=== PATIENT | male | born 1945 ===

== ENCOUNTER 2018-05-22 12:31 | Inpatient (IN) | payer MEDICARE, BC ==
[~2018-05-22] VITALS: Ht 180.3 cm; Wt 112.0 kg
[~2018-05-22 12:31] MED LIST: ALLERGY RELIE15.8 ML; AMOCLA875 PO; ASPI81CH PO; BISA5EC PO; DOXA4 PO; FURO40 PO; GLIM2 PO; HYDACE10B PO; INSULANI SC; INSULANPEN SC; KRILL OIL500 MG PO; LISHYD2025 PO; LISI5 PO; MAGCHL64ER PO; MAGNESIUM400 MG PO; MELO7.5 PO; METF500 PO; METO25 PO; METO25ER PO; METO50 PO; Metformin HCl500 MG PO; Novolog100 UNIT/1 SC; Omeprazole20 M1 PO; PERI4 PO; PIOG30 PO; PRAV20 PO; PRED20 PO; Prinivil10 MG PO; TERBINAFINE PO
[2018-05-28 05:27] LABS: BASOPHILS ABSOLUTE AUTO 0.01 K/mm3 (0.00-0.23); BASOPHILS PERCENT AUTO 0 % (0-2); EOSINOPHILS PERCENT AUTO 0 % (0-6); Hematocrit 36.4 % (37.0-53.0); Hemoglobin 12.1 g/dL (13.5-17.5); IMMATURE GRAN ABSOLUTE AUTO 0.03 K/mm3 (0.00-0.10); IMMATURE GRAN PERCENT AUTO 0 % (0-1); LYMPHOCYTES ABSOLUTE AUTO 1.03 K/mm3 (0.84-5.20); LYMPHOCYTES PERCENT AUTO 8 % (21-46); MONOCYTES ABSOLUTE AUTO 0.59 K/mm3 (0.16-1.47); MONOCYTES PERCENT AUTO 5 % (4-13); Mean Corpuscular HGB 31.7 pg (26.0-34.0); Mean Corpuscular HGB Conc 33.2 g/dL (31.5-36.5); Mean Corpuscular Volume 95 fL (80-100); Mean Platelet Volume 10.7 fL (9.1-12.4); NEUTROPHILS ABSOLUTE AUTO 10.95 K/mm3 (1.96-9.15); NEUTROPHILS PERCENT AUTO 87 % (41-73); Platelet Count 127 K/mm3 (150-400); RDW Standard Deviation 49.2 fL (35.1-46.3); Red Blood Cell Count 3.82 M/mm3 (4.30-5.90); White Blood Cell Count 12.61 K/mm3 (4.00-11.30)
[2018-05-28 05:51] LABS: Magnesium, Blood 1.8 mg/dL (1.6-2.4)
[2018-05-28 05:54] LABS: Anion Gap 7 mmol/L (6-16); Blood Urea Nitrogen 23 mg/dL (8-24); Bun/Creatinine Ratio 21.1 (12.0-20.0); CO2, Blood 25 mmol/L (21-32); Calcium, Blood 8.3 mg/dL (8.5-10.1); Chloride, Blood 108 mmol/L (98-108); Creatinine, Blood 1.09 mg/dL (0.60-1.20); Glomerular Filtration Rate >60 (60-); Glucose, Blood 179 mg/dL (70-99); Potassium, Blood 4.9 mmol/L (3.5-5.5); Sodium, Blood 140 mmol/L (136-145)
[2018-05-28] MEDS ORDERED: DOCU100 PO (14:52)
[2018-05-28] MEDS ORDERED: ASPI325 PO (14:52)
[2018-05-28] MEDS ORDERED: OXYC5 PO (14:54)
== END 2018-05-28 15:21 | disposition home or self-care (01) | DRG 470 ==
LOC: SURS 05-27 08:51 → PRE IP 05-27 11:30 → SURS 05-27 18:42
PROVIDERS: Orthopaedic Surgery
PROC: 8E0YXBZ Computer Assisted Procedure of Lower Extremity (ICD-10-PCS; 2018-05-27)
PROC: 0SR90JZ Replacement of Right Hip Joint with Synthetic Substitute, Open Approach (ICD-10-PCS; principal; 2018-05-27 11:30)
DX: M16.11 Unilateral primary osteoarthritis, right hip (principal); C91.10 Chronic lymphocytic leukemia of B-cell type not having achieved remission; E11.9 Type 2 diabetes mellitus without complications; E78.5 Hyperlipidemia, unspecified; N40.0 Benign prostatic hyperplasia without lower urinary tract symptoms; I10 Essential (primary) hypertension; Z79.82 Long term (current) use of aspirin; Z79.4 Long term (current) use of insulin; Z79.899 Other long term (current) drug therapy; Z87.891 Personal history of nicotine dependence
CPT/HCPCS: 36415; 72170; 80048; 82947; 83735; 85025; 86850; 86900; 86901; 88300; 97110; 97116; 97162; 97165; 97530; C1713; C1776; G8978; G8979; G8987; G8988; G8989; J0171; J0690; J0735; J1100; J1885; J2001; J2250; J2370; J2405; J2710; J2795; J3010; J7120

== ENCOUNTER 2018-05-29 08:15 | Emergency (ER) | payer MEDICARE, BC ==
[~2018-05-29] VITALS: Ht 177.8 cm; Wt 113.4 kg
[~2018-05-29 08:15] MED LIST changes: +ASPI325 PO; +DOCU100 PO; +OXYC5 PO
== END 2018-05-29 09:43 | disposition home or self-care (01) ==
LOC: ER 08:15
DX: M96.840 Postprocedural hematoma of a musculoskeletal structure following a musculoskeletal system procedure (principal); E11.9 Type 2 diabetes mellitus without complications; I10 Essential (primary) hypertension; Z87.891 Personal history of nicotine dependence; Z79.899 Other long term (current) drug therapy; Z79.4 Long term (current) use of insulin; Z79.82 Long term (current) use of aspirin; Z96.642 Presence of left artificial hip joint
CPT/HCPCS: 99282

== ENCOUNTER 2019-05-17 18:28 | Emergency (ER) | payer OTHER, MEDICARE, BC ==
[~2019-05-17] VITALS: Ht 177.8 cm; Wt 99.8 kg
[~2019-05-17 18:28] MED LIST changes: +Cardura8 MG PO; -DOXA4 PO; +Pravachol40 MG PO
[2019-05-17] MEDS ORDERED: Aspirin EC81 MG PO (18:40)
[2019-05-17] MEDS ORDERED: ENTRESTO 49 MG1 EACH PO (18:41)
[2019-05-17] MEDS ORDERED: POTCHL20ER PO (18:41)
[2019-05-17] MEDS ORDERED: SINEMET 25-1001 EACH PO (18:48)
[2019-05-17] MEDS ORDERED: Metformin HCl1000 MG PO (18:50)
[2019-05-17] MEDS ORDERED: Glucosamine Co1 EAC1 PO (18:51)
[2019-05-17 19:09] LABS: BASOPHILS ABSOLUTE AUTO 0.03 K/mm3 (0.00-0.23); BASOPHILS PERCENT AUTO 0 % (0-2); EOSINOPHILS ABSOLUTE AUTO 0.14 K/mm3 (0.00-0.68); EOSINOPHILS PERCENT AUTO 1 % (0-6); Hematocrit 36.4 % (37.0-53.0); Hemoglobin 12.4 g/dL (13.5-17.5); IMMATURE GRAN ABSOLUTE AUTO 0.04 K/mm3 (0.00-0.10); IMMATURE GRAN PERCENT AUTO 0 % (0-1); LYMPHOCYTES ABSOLUTE AUTO 1.89 K/mm3 (0.84-5.20); LYMPHOCYTES PERCENT AUTO 19 % (21-46); MONOCYTES ABSOLUTE AUTO 0.76 K/mm3 (0.16-1.47); MONOCYTES PERCENT AUTO 8 % (4-13); Mean Corpuscular HGB 33.4 pg (26.0-34.0); Mean Corpuscular HGB Conc 34.1 g/dL (31.5-36.5); Mean Corpuscular Volume 98 fL (80-100); Mean Platelet Volume 10.5 fL (9.1-12.4); NEUTROPHILS ABSOLUTE AUTO 7.32 K/mm3 (1.96-9.15); NEUTROPHILS PERCENT AUTO 72 % (41-73); Platelet Count 141 K/mm3 (150-400); RDW Coefficient Variation 13.4 % (11.7-14.2); RDW Standard Deviation 48.3 fL (35.1-46.3); Red Blood Cell Count 3.71 M/mm3 (4.30-5.90); White Blood Cell Count 10.18 K/mm3 (4.00-11.30)
[2019-05-17 19:24] LABS: Albumin, Blood 4.2 g/dL (3.4-5.0); Albumin/Globulin Ratio 1.5 (0.8-1.8); Bilirubin, Total 1.1 mg/dL (0.1-1.0); Bun/Creatinine Ratio 20.5 (12.0-20.0); Calcium, Blood 9.7 mg/dL (8.5-10.1); Creatinine, Blood 1.71 mg/dL (0.60-1.20); Globulin, Blood 2.8 g/dL (2.2-4.0); Magnesium, Blood 1.6 mg/dL (1.6-2.4); Potassium, Blood 4.1 mmol/L (3.5-5.5)
== END 2019-05-17 21:53 | disposition home or self-care (01) ==
LOC: ER 18:28
PROVIDERS: Emergency Medicine
DX: N17.9 Acute kidney failure, unspecified (principal); N28.9 Disorder of kidney and ureter, unspecified; R00.0 Tachycardia, unspecified; E11.9 Type 2 diabetes mellitus without complications; I10 Essential (primary) hypertension; Z85.51 Personal history of malignant neoplasm of bladder; Z79.899 Other long term (current) drug therapy; Z79.4 Long term (current) use of insulin; Z79.82 Long term (current) use of aspirin
CPT/HCPCS: 71046; 80053; 83735; 85025; 93005; 93010; 96374; 99285-25

== ENCOUNTER → 2019-06-17 | Outpatient (CLI) | payer MEDICARE, BC ==
[~2019-06-17] MED LIST changes: +Aspirin EC81 MG PO; +ENTRESTO 49 MG1 EACH PO; +Glucosamine Co1 EAC1 PO; +Metformin HCl1000 MG PO; +POTCHL20ER PO; +SINEMET 25-1001 EACH PO
== END | disposition home or self-care (01) ==
LOC: PLD 12:18 → LAB SHORT 12:18
DX: C44.619 Basal cell carcinoma of skin of left upper limb, including shoulder (principal); C44.311 Basal cell carcinoma of skin of nose; D04.22 Carcinoma in situ of skin of left ear and external auricular canal; D18.01 Hemangioma of skin and subcutaneous tissue; L81.4 Other melanin hyperpigmentation
CPT/HCPCS: 88305

== ENCOUNTER 2019-09-06 16:33 | Inpatient (IN) | payer OTHER, MEDICARE, BC ==
[~2019-09-06] VITALS: Ht 182.9 cm; Wt 103.2 kg
[~2019-09-06 16:33] MED LIST changes: +ELIQUIS5 M3 PO; +Flonase 0.05% N16 GM; +GLUCOSAMINE CH1 EAC1 PO; -Glucosamine Co1 EAC1 PO; +OMEGA-3 KRILL1 EACH PO
[2019-09-06 17:06] LABS: BASOPHILS ABSOLUTE AUTO 0.03 K/mm3 (0.00-0.23); BASOPHILS PERCENT AUTO 0 % (0-2); EOSINOPHILS ABSOLUTE AUTO 0.17 K/mm3 (0.00-0.68); EOSINOPHILS PERCENT AUTO 2 % (0-6); Hematocrit 40.8 % (37.0-53.0); IMMATURE GRAN ABSOLUTE AUTO 0.05 K/mm3 (0.00-0.10); IMMATURE GRAN PERCENT AUTO 0 % (0-1); LYMPHOCYTES ABSOLUTE AUTO 1.79 K/mm3 (0.84-5.20); LYMPHOCYTES PERCENT AUTO 16 % (21-46); MONOCYTES ABSOLUTE AUTO 0.77 K/mm3 (0.16-1.47); MONOCYTES PERCENT AUTO 7 % (4-13); Mean Corpuscular HGB 30.4 pg (26.0-34.0); Mean Corpuscular HGB Conc 34.3 g/dL (31.5-36.5); Mean Corpuscular Volume 89 fL (80-100); NEUTROPHILS ABSOLUTE AUTO 8.69 K/mm3 (1.96-9.15); NEUTROPHILS PERCENT AUTO 76 % (41-73); Platelet Count 174 K/mm3 (150-400); RDW Coefficient Variation 15.1 % (11.7-14.2); RDW Standard Deviation 48.3 fL (35.1-46.3)
[2019-09-06 17:19] LABS: Albumin, Blood 4.3 g/dL (3.4-5.0); Albumin/Globulin Ratio 1.1 (0.8-1.8); Bilirubin, Total 1.1 mg/dL (0.1-1.0); Bun/Creatinine Ratio 29.7 (12.0-20.0); Calcium, Blood 11.2 mg/dL (8.5-10.1); Creatinine, Blood 1.95 mg/dL (0.60-1.20); Globulin, Blood 3.8 g/dL (2.2-4.0); Potassium, Blood 4.2 mmol/L (3.5-5.5); Total Protein, Blood 8.1 g/dL (6.4-8.2)
[2019-09-06] MEDS ORDERED: METF500 PO (20:15)
[2019-09-06] MEDS ORDERED: METO2.5 PO (20:20)
[2019-09-06] MEDS ORDERED: PRAM.125 PO (20:24)
--- NOTE | 2019-09-06 23:07 | NUR ---
URINARY RETENTION PT FELT URGE TO VOID, UNABLE TO VOID IN BED. BLADDER SCAN DONE. OVER 721ML. PT INCREASINGLY UNCOMFORTABLE AND IRRITATED D/T INABILITY TO VOID. ARNETT CATHETER INSERTED.
--- NOTE | 2019-09-06 23:09 | NUR ---
ASSUME CARE RECEIVED REPORT FROM CHRISTIE GIRON (ED). PT ARRIVED FROM ED VIA STRETCHER. PT ALERT AND ORIENTED, BUT UNABLE TO EXPRESS THOUGHTS (EXPRESSIVE APHASIA). PT STATES, "i CAN'T THINK OF THE WORD" AND INCREASINGLY IRRITATED. LUNGS CTAB. PULSES STRONG THROUGHOUT. AFEBRILE. DURING ADMISSION PROCESS, PT UNABLE TO VOID, BUT FELT THE URG. BLADDER SCANNER DONE AND PT HAD 721ML RETENTION. ARNETT CATHETER INSERTED, CLEAR YELLOW URINE DRAINING. PT ON RA AT ADMISSION TO ICU, BUT REQUIRED OXYGEN AT 2245 D/T LOW O2 SATS (87-89%). PT ON 2L O2 NOW, SATS ABOVE 95%. PT HAS EXTERNAL PACEMAKER. WILL CONTINUE TO MONITOR.
[2019-09-07 00:56] LABS: Source, Urine Catheter
[2019-09-07 00:58] LABS: Appearance, Urine Clear (Clear); Bilirubin, Urine Neg (Neg); Blood, Urine 1+ (Neg); Color, Urine Yellow (P-Yellow); Glucose Qualitative, Urine 2+ (Neg); Ketones, Urine 1+ (Neg); Leukocyte Esterase, Urine Neg (Neg); Nitrite, Urine Neg (Neg); Protein, Urine 1+ (Neg); Specific Gravity, Urine 1.005 (1.003-1.022); Urobilinogen, Urine NORM (Normal); pH, Urine 6.5 (5.0-8.0)
[2019-09-07 01:05] LABS: White Blood Cells, Urine 0-2 /hpf (0-5)
[2019-09-07 01:06] LABS: Bacteria Few /hpf; Squamous Epithelial Cells Not Seen /hpf (Few)
[2019-09-07 01:07] LABS: Amorphous Light (0-Heavy)
[2019-09-07 03:45] LABS: BASOPHILS ABSOLUTE AUTO 0.04 K/mm3 (0.00-0.23); BASOPHILS PERCENT AUTO 0 % (0-2); EOSINOPHILS ABSOLUTE AUTO 0.14 K/mm3 (0.00-0.68); EOSINOPHILS PERCENT AUTO 1 % (0-6); Hematocrit 38.7 % (37.0-53.0); Hemoglobin 13.3 g/dL (13.5-17.5); IMMATURE GRAN ABSOLUTE AUTO 0.04 K/mm3 (0.00-0.10); IMMATURE GRAN PERCENT AUTO 0 % (0-1); LYMPHOCYTES ABSOLUTE AUTO 2.43 K/mm3 (0.84-5.20); LYMPHOCYTES PERCENT AUTO 22 % (21-46); MONOCYTES ABSOLUTE AUTO 0.83 K/mm3 (0.16-1.47); MONOCYTES PERCENT AUTO 8 % (4-13); Mean Corpuscular HGB 30.3 pg (26.0-34.0); Mean Corpuscular HGB Conc 34.4 g/dL (31.5-36.5); Mean Corpuscular Volume 88 fL (80-100); Mean Platelet Volume 10.4 fL (9.1-12.4); NEUTROPHILS ABSOLUTE AUTO 7.37 K/mm3 (1.96-9.15); NEUTROPHILS PERCENT AUTO 68 % (41-73); Platelet Count 141 K/mm3 (150-400); RDW Coefficient Variation 15.3 % (11.7-14.2); RDW Standard Deviation 48.6 fL (35.1-46.3); Red Blood Cell Count 4.39 M/mm3 (4.30-5.90); White Blood Cell Count 10.85 K/mm3 (4.00-11.30)
[2019-09-07 03:59] LABS: Bun/Creatinine Ratio 29.1 (12.0-20.0); Calcium, Blood 10.4 mg/dL (8.5-10.1); Creatinine, Blood 1.89 mg/dL (0.60-1.20); Potassium, Blood 3.2 mmol/L (3.5-5.5)
--- NOTE | 2019-09-07 06:04 | NUR ---
SHIFT SUMMARY PT REMAINS A&OX4. STILL HAVING TROUBLE EXPRESSING WORDS, BUT SOME IMPROVEMENT NOTED. NO ACUTE EVENTS. WILL CONTINUE TO MONITOR.
--- NOTE | 2019-09-07 07:30 | NUR ---
ASSUMED CARE OF PATIENT; SEE ASSESSMENT FOR DETAILS. PATIENT WITH FLAT AFFECT BUT COOPERATIVE; KIND OF A "COFFEY-HUM-BUG". OXYGEN AT 2L/NC WITH READINGS MID TO HIGH 90'S. PATIENT WANTING TO EAT/DRINK BUT NPO AT THIS TIME. TO HAVE MRI OF HEAD, TODAY. CBG 171; COVERED WITH HIGH SLIDING SCALE. IVF INFUSING AT 50ML/HR. ARNETT TO GRAVITY AND DRAINING MOD. AMOUNTS OF YELLOW URINE. NEURO SIGNS REMAINS WNL; NO CHANGES IN STRENGTH/MOVEMENT; REPOSITIONS SELF IN BED.
--- NOTE | 2019-09-07 09:30 | NUR ---
UNCLEAR IF PATIENT [facility] OR HOSPITALIST PATIENT WHILE IN HOSPITAL. SEVERAL PHONE CALLS BUT NO CALL BACKS. MORNING MEDS. HELD; SBP 80'ST0 90'S AND PATIENT REMAINS NPO STATUS.
--- NOTE | 2019-09-07 09:40 | NUR ---
DR. CARBAJAL ON ICU EAST AND STATES HE WILL BE FOLLOWING PATIENT ([facility]); ORDER GIVEN FOR DIET AND PHYSICIAN WILL SEE PATIENT SHORTLY.
--- NOTE | 2019-09-07 10:38 | NUR ---
DR. CARBAJAL HERE; DISCUSSED POC WITH PATIENT AND HIS FRIEND. OT/PT ORDERED TO EVAL AND TX; FRQENT FALLS AND LIVES ALONE. DIET ORDERS GIVEN AND ADJUSTMENT ON METOPROLOL PARAMETERS.
--- NOTE | 2019-09-07 11:41 | NUR ---
THERAPIST IN AND WORKING WITH PATIENT; AMBULATED, IN ROOM, WITH WALKER AND GAIT BELT. DANGLED AT BEDSIDE AND BRUSHED TEETH.
--- NOTE | 2019-09-07 14:45 | NUR ---
RN AND RADIOLOGY RUNNER ESCORTED PATIENT, VIA BED, WITH MONITOR AND OXYGEN. TO RADIOLOGY FOR MRI OF BRAIN.
--- NOTE | 2019-09-07 15:20 | NUR ---
RETURNED FROM RADIOLOGY, VIA BED WITH RN, RUNNER/OXYGEN AND C. MONITOR. OFF HEART MONITOR FOR STUDY WELL PATIENT PULLED OUT CBG DISC ON KAYLYN; DISPOSED INTO SHARPS CONTAINER. PATIENT PLACED BACK ON NIBP, MONITOR, OXYGEN, ETC. SCD'S RESUMED; PATIENT DENIES ACUTE C/O; STATES HE HAS LITTLE FEELING IN LE'S SO SCD'S DO NOT BOTHER HIM (NEUROPATHY).
--- NOTE | 2019-09-07 16:32 | NUR ---
PHYSICAL THERAPIST HERE TO WORK WITH PATIENT. REPORT FROM MRI SHOWS NO INFARCT TO BRAIN OR BLEED; SEE RADIOLOGY NOTE.
--- NOTE | 2019-09-07 18:07 | NUR ---
SUMMARY: TOLERATED SOFT/ADA-RENAL DIET WITHOUT SWALLOWING OR DIGESTIVE ISSUES. STRENGTH IMPROVED. IVF'S DC'D BUT IV SITES REMAIN PATENT. SBP BETTER THIS AFTERNOON; BORDERLINE LOW LATE AM/AFTERNOON. PATIENT WATCHING TV AND HAPPY TO HEAR NO CVA NOTED ON MRI (RADIOLOGIST REPORT IN CHART). NO DEFICITS NOTED TO LIMBS, EYES ETC. MOOD IMPROVED AND LESS FLAT AFFECT NOTED. WILL REPORT TO ONCOMING RN.
--- NOTE | 2019-09-07 19:00 | NUR ---
REPORT BEDSIDE REPORT RECIEVED FROM CHRISTIE NAJERA. PT SITTING UP IN BED, TV ON, A&O X3, NO C/O VOICED. OXYGEN AT 2L/NC R/T SAT DROP WHEN ASLEEP. BREAD OVEN OPERATOR IN PLACE WITH VS; B/P 130/55 MAP 78, RR 18, HR 67 AFIB, TEMP 98. INTRODUCTIONS MADE AND INFORMED PT THIS RN WILL BE BACK TO EVAL PT AND GIVE MEDS. PT CONCERNED ABOUT MEDICATIONS HE IS RECEIVING. NO OTHER C/O OR CONCERNS VOICED AT THIS TIME. WILL CONTINUE TO MONITOR PT THROUGHOUT THIS SHIFT.
--- NOTE | 2019-09-08 06:21 | NUR ---
SHIFT SUMMARY PT IN BED MOST OF SHIFT, UP TO BSC X1 WITH MIN ASSIST. PT HAD BM X1 MED SOFT BROWN FORMED STOOL. ARNETT DRAINING TO DD WITH 1250 CLEAR YELLOW URINE OUT. PT IRRITABLE AT TIMES, ALERT & ORIENTED X4, USES CALL LIGHT APPROPRIATELY. HEART REMAINS A-FIB WITH PVCs, RATE 60-70s. SBP 80-130s. LUNGS CLEAR BUL AND DIMINISHED BLL, O2 @ 2L/NC WHILE ASLEEP R/T SATS DROP PER DAY SHIFT REPORT. PT STATES WAS TOLD TO USE CPAP AT [facility] BUT NEVER RECEIVED THE EQUIPMENT. BOWEL SOUNDS PRESENT, ABD ROUND, NONTENDER. PT HAS GOOD APPETITE, TOLERATING SOFT ADA/RENAL DIET WITHOUT DIFFICULTY. BS 303 AT HS AND LANTUS GIVEN PER ORDER. BED LOW POSITION, RAILS UP X3, TABLE & CALL LIGHT IN REACH. WILL CONTINUE TO MONITOR PT THROUGHOUT SHIFT.
--- NOTE | 2019-09-08 09:15 | NUR ---
PROVIDER VISIT DR. CARBAJAL TO BEDSIDE FOR ASSESSMENT. PER DR. CARBAJAL, PLAN IS TO CONTINUE WITH CARDIAC CONSULT TO DETERMINE PLAN FOR RESTARTING OF ELIQUIS VS. HOLDING FOR FALLS, TRANSFER PT TO MEDICAL FLOOR WITH NO TELEMTETRY, "TO SIMULATE BEING HOME." - PER DR. CARBAJAL. WILL PUT LIFEVEST BACK ON WHEN TELEMTRY DISCONTINUED. PT UPDATED AND AGREEABLE TO PLAN.
--- NOTE | 2019-09-08 10:12 | NUR ---
CARDIOLOGY CONSULT DR. QUINTERO TO BEDSIDE FOR CONSULT. PLAN TO RESTART ELIQUIS AND REPEAT ECHO. OTHERWISE, NO NEW ORDERS. DR. QUINTERO RECOMMENDING PCU WITH CARDIAC MONITORING RATHER THAN MEDICAL FLOOR NO TELEMETRY AND STATES SHE WILL DISCUSS WITH DR. CARBAJAL.
--- NOTE | 2019-09-08 10:32 | NUR ---
HANDICAPPED TEACHER AT BEDSIDE
[2019-09-08 10:46] LABS: Bun/Creatinine Ratio 29.2 (12.0-20.0); Calcium, Blood 9.5 mg/dL (8.5-10.1); Creatinine, Blood 1.37 mg/dL (0.60-1.20); Potassium, Blood 3.1 mmol/L (3.5-5.5)
--- NOTE | 2019-09-08 12:29 | NUR ---
HYPOTENSION PT'S BLOOD PRESSURE NOTED TO BE SLIGHTLY LOW. PT ALERT, SITTING UP IN CHAIR. DENIES CHEST PAIN, SHORTNESS OF BREATH OR DIZZINESS.
--- NOTE | 2019-09-08 12:35 | NUR ---
PROVIDER COMMUNICATION SPOKE WITH DR. CARBAJAL REGARDING PT'S BLOOD PRESSURE, AND CHANGING PT'S STATUS TO PCU PER THE CARPENTER APPRENTICE'S RECOMMENDATIONS. NEW ORDER FOR PCU STATUS.
[2019-09-08 13:05] LABS: Glucose, Blood 336 mg/dL (70-99)
--- NOTE | 2019-09-08 18:15 | NUR ---
SUMMARY SINCE PREVIOUS NOTE, BLOOD PRESSURE IMPROVED. HR STABLE 70'S-80'S AFIB. PT AFEBRILE. 02 SAT'S 90'S ON ROOM AIR. P THAS BEEN UP AND DOWN TO BATHROOM WITH STANDBY ASSIST AND USE OF WALKER. PT HAS HAD NO EPISODES OF SYNCOPE OR DIZZINESS. STABLE ON FEET. ARNETT DISCONTINUED AND PT HAS VOIDED SINCE REMOVAL. PT HAS EATEN MAJORITY OF HIS MEALS. CALLS APPROPRIATELY FOR NEEDS. RESTART NORMA HARDY PER PROPERTY DEVELOPER. PT REPORTS, "I COULD PROBABLY GO HOME." PROVIDED ENCOURAGEMENT FOR MONITORING OVERNIGHT AND PT AGREEABLE.
--- NOTE | 2019-09-08 19:15 | NUR ---
REPORT BEDSIDE REPORT RECEIVED FROM CHRISTIE GORDON. PT SITTING UP IN BED, TV ON, CALL LIGHT AND TABLE WITHIN REACH, NO C/O OR NEEDS VOICED AT THIS TIME. SL TO RT FA. PT REMINDED TO CALL FOR ASSIST WHEN OOB OR HAS NEEDS. WILL CONTINUE TO MONITOR THIS SHIFT.
--- NOTE | 2019-09-08 19:19 | NUR ---
REPORT TO CHRISTIE SEQUEIRA TO ASSUME CARE
--- NOTE | 2019-09-08 20:30 | NUR ---
HS SNACK PT SITTING UP IN BED, REQUESTING HS SNACK. BLOOD SUGAR CHECKED AND THEN HS SNACK GIVEN BY CHRISTIE BROCK.
--- NOTE | 2019-09-09 06:35 | NUR ---
SHIFT SUMMARY PT RESTING IN BED MOST OF SHIFT. PT AMBULATES TO COMMODE OR CHAIR WITH WALKER AND SUPERVISION. PT DENIES SOB, CP, PAIN THIS SHIFT. SL TO RT FA, PATENT. PT HEART RATE 60s, AFIB. LUNGS CLEAR BUL, DIM BLL, SATS >90%. BOWEL SOUNDS PRESENT, USES URINAL SELF. PT ATE HS SNACK, BLOOD SUGAR CHECKS DONE AND HS LANTUS GIVEN. PT VOICED NO C/O THIS SHIFT. PT DOES OWN CARES WITH SUPERVISION. PT STATES HE WOULD LIKE TO GO HOME TODAY. WILL CONTINUE TO MONITOR PT.
[2019-09-09 11:29] LABS: BASOPHILS ABSOLUTE AUTO 0.02 K/mm3 (0.00-0.23); BASOPHILS PERCENT AUTO 0 % (0-2); EOSINOPHILS ABSOLUTE AUTO 0.31 K/mm3 (0.00-0.68); EOSINOPHILS PERCENT AUTO 4 % (0-6); Hematocrit 35.7 % (37.0-53.0); Hemoglobin 12.2 g/dL (13.5-17.5); IMMATURE GRAN ABSOLUTE AUTO 0.02 K/mm3 (0.00-0.10); IMMATURE GRAN PERCENT AUTO 0 % (0-1); LYMPHOCYTES PERCENT AUTO 24 % (21-46); MONOCYTES ABSOLUTE AUTO 0.68 K/mm3 (0.16-1.47); MONOCYTES PERCENT AUTO 8 % (4-13); Mean Corpuscular HGB Conc 34.2 g/dL (31.5-36.5); Mean Platelet Volume 10.8 fL (9.1-12.4); NEUTROPHILS PERCENT AUTO 64 % (41-73); Platelet Count 116 K/mm3 (150-400); RDW Coefficient Variation 15.1 % (11.7-14.2); RDW Standard Deviation 49.4 fL (35.1-46.3); Red Blood Cell Count 3.94 M/mm3 (4.30-5.90); White Blood Cell Count 8.63 K/mm3 (4.00-11.30)
[2019-09-09 11:35] LABS: Mean Corpuscular Volume 91 fL (80-100)
[2019-09-09 11:43] LABS: Albumin, Blood 3.6 g/dL (3.4-5.0); Albumin/Globulin Ratio 1.1 (0.8-1.8); Bilirubin, Total 0.9 mg/dL (0.1-1.0); Bun/Creatinine Ratio 27.1 (12.0-20.0); Calcium, Blood 9.6 mg/dL (8.5-10.1); Creatinine, Blood 1.29 mg/dL (0.60-1.20); Globulin, Blood 3.3 g/dL (2.2-4.0); Potassium, Blood 3.3 mmol/L (3.5-5.5); Total Protein, Blood 6.9 g/dL (6.4-8.2)
== END 2019-09-09 14:25 | disposition home or self-care (01) | DRG 85 ==
LOC: ER 16:33 → ICUW 19:36
PROVIDERS: Emergency Medicine; Internal Medicine; ADMIT Hospitalist
DX: S06.6X0A Traumatic subarachnoid hemorrhage without loss of consciousness, initial encounter (principal); G92 Toxic encephalopathy; N17.9 Acute kidney failure, unspecified; I50.22 Chronic systolic (congestive) heart failure; I13.0 Hypertensive heart and chronic kidney disease with heart failure and stage 1 through stage 4 chronic kidney disease, or unspecified chronic kidney disease; I47.1 Supraventricular tachycardia; I25.10 Atherosclerotic heart disease of native coronary artery without angina pectoris; G20 Parkinson's disease; Z96.641 Presence of right artificial hip joint; Z90.79 Acquired absence of other genital organ(s); Z95.1 Presence of aortocoronary bypass graft; Z87.891 Personal history of nicotine dependence; E83.52 Hypercalcemia; E87.5 Hyperkalemia; E11.22 Type 2 diabetes mellitus with diabetic chronic kidney disease; N18.2 Chronic kidney disease, stage 2 (mild); I48.0 Paroxysmal atrial fibrillation; I51.3 Intracardiac thrombosis, not elsewhere classified; I25.5 Ischemic cardiomyopathy; Z79.4 Long term (current) use of insulin; I27.20 Pulmonary hypertension, unspecified; N18.3 Chronic kidney disease, stage 3 (moderate); H54.40 Blindness, one eye, unspecified eye; I49.3 Ventricular premature depolarization
CPT/HCPCS: 36415; 36416; 51703; 70450; 70551; 80048; 80053; 81001; 82947; 83970; 85025; 93005; 93010; 93306; 96360; 96361; 97110; 97116; 97162; 97166; 97530; 97535; 99285-25; J7030

== ENCOUNTER → 2020-04-27 | Outpatient (CLI) | payer MEDICARE, BC ==
[~2020-04-27] MED LIST changes: +METO2.5 PO; +PRAM.125 PO
== END | disposition home or self-care (01) ==
LOC: PLD 11:10 → LAB SHORT 11:10
DX: D48.5 Neoplasm of uncertain behavior of skin (principal)
CPT/HCPCS: 88305

== ENCOUNTER → 2020-08-29 | Outpatient (CLI) | payer MEDICARE, BC | END | disposition home or self-care (01) | LOC: LAB SHORT 08:34 → LAB 08:34 | DX: D48.5 Neoplasm of uncertain behavior of skin (principal) | CPT/HCPCS: 88305 ==

== ENCOUNTER → 2020-10-04 | Outpatient (CLI) | payer MEDICARE, BC | END | disposition home or self-care (01) | LOC: PLD 12:40 → LAB SHORT 12:40 | DX: C44.311 Basal cell carcinoma of skin of nose (principal) | CPT/HCPCS: 88305 ==

== ENCOUNTER → 2021-02-08 | Outpatient (CLI) | payer MEDICARE, BC | END | disposition home or self-care (01) | LOC: LAB 12:00 → LAB SHORT 12:00 | DX: N39.0 Urinary tract infection, site not specified (principal) | CPT/HCPCS: 87086 ==

== ENCOUNTER → 2021-05-22 | Outpatient (CLI) | payer MEDICARE, BC | END | disposition home or self-care (01) | LOC: LAB 12:09 → LAB SHORT 12:09 | DX: C44.229 Squamous cell carcinoma of skin of left ear and external auricular canal (principal); C44.311 Basal cell carcinoma of skin of nose; C44.01 Basal cell carcinoma of skin of lip | CPT/HCPCS: 88305 ==

== ENCOUNTER → 2021-05-23 | Outpatient (CLI) | payer MEDICARE, BC ==
[2021-05-23 14:54] LABS: Calcium, Blood 9.5 mg/dL (8.5-10.1); Creatinine, Blood 1.47 mg/dL (0.60-1.20); Potassium, Blood 4.3 mmol/L (3.5-5.5)
== END | disposition home or self-care (01) ==
LOC: LAB 14:38 → LAB SHORT 14:38
PROVIDERS: Physician Assistant
DX: E11.9 Type 2 diabetes mellitus without complications (principal)
CPT/HCPCS: 80048; 83036

== ENCOUNTER → 2021-11-20 | Outpatient (CLI) | payer MEDICARE, BC | END | disposition home or self-care (01) | LOC: PLD 11:10 → LAB SHORT 11:10 | DX: C44.619 Basal cell carcinoma of skin of left upper limb, including shoulder (principal) | CPT/HCPCS: 88305 ==

== ENCOUNTER → 2022-06-14 | Outpatient (CLI) | payer MEDICARE, BC | LOC: LAB SHORT 14:57 → LAB 14:57 → PLD 14:57 | DX: C44.619 Basal cell carcinoma of skin of left upper limb, including shoulder (principal); D04.62 Carcinoma in situ of skin of left upper limb, including shoulder; L57.0 Actinic keratosis | CPT/HCPCS: 88305 ==

== ENCOUNTER → 2022-06-28 | Outpatient (CLI) | payer MEDICARE, BC | END | disposition home or self-care (01) | LOC: LAB SHORT 14:50 → LAB 14:50 | DX: L03.114 Cellulitis of left upper limb (principal) | CPT/HCPCS: 87070; 87077; 87147; 87186; 87205 ==

== ENCOUNTER → 2023-04-03 | Outpatient (CLI) | payer MEDICARE, BC ==
[2023-04-03 13:38] LABS: BASOPHILS ABSOLUTE AUTO 0.02 K/mm3 (0.00-0.23); BASOPHILS PERCENT AUTO 0 % (0-2); EOSINOPHILS ABSOLUTE AUTO 0.17 K/mm3 (0.00-0.68); EOSINOPHILS PERCENT AUTO 2 % (0-6); Hematocrit 41.6 % (37.0-53.0); Hemoglobin 14.3 g/dL (13.5-17.5); IMMATURE GRAN ABSOLUTE AUTO 0.03 K/mm3 (0.00-0.10); IMMATURE GRAN PERCENT AUTO 0 % (0-1); LYMPHOCYTES ABSOLUTE AUTO 1.96 K/mm3 (0.84-5.20); LYMPHOCYTES PERCENT AUTO 24 % (21-46); MONOCYTES ABSOLUTE AUTO 0.55 K/mm3 (0.16-1.47); MONOCYTES PERCENT AUTO 7 % (4-13); Mean Corpuscular HGB 32.9 pg (26.0-34.0); Mean Corpuscular HGB Conc 34.4 g/dL (31.5-36.5); Mean Corpuscular Volume 96 fL (80-100); Mean Platelet Volume 11.9 fL (9.1-12.4); NEUTROPHILS ABSOLUTE AUTO 5.54 K/mm3 (1.96-9.15); NEUTROPHILS PERCENT AUTO 67 % (41-73); Platelet Count 95 K/mm3 (150-400); RDW Standard Deviation 49.2 fL (35.1-46.3); Red Blood Cell Count 4.35 M/mm3 (4.30-5.90); White Blood Cell Count 8.27 K/mm3 (4.00-11.30)
[2023-04-03 13:51] LABS: Albumin, Blood 4.2 g/dL (3.4-5.0); Albumin/Globulin Ratio 1.2 (0.8-1.8); Bilirubin, Total 0.7 mg/dL (0.1-1.0); Bun/Creatinine Ratio 27.3 (12.0-20.0); Calcium, Blood 10.2 mg/dL (8.5-10.1); Creatinine, Blood 2.56 mg/dL (0.60-1.20); Globulin, Blood 3.4 g/dL (2.2-4.0); Total Protein, Blood 7.6 g/dL (6.4-8.2)
[2023-04-03 14:25] LABS: Digoxin (Lanoxin) 1.48 ug/mL (0.80-2.00)
== END | disposition home or self-care (01) ==
LOC: LAB 13:32 → LAB SHORT 13:32
PROVIDERS: Physician Assistant
DX: I48.91 Unspecified atrial fibrillation (principal); R06.00 Dyspnea, unspecified
CPT/HCPCS: 80053; 80162; 83880; 85025

== ENCOUNTER 2023-05-01 18:48 | Inpatient (IN) | payer MEDICARE, BC ==
[~2023-05-01] VITALS: Ht 177.8 cm; Wt 106.0 kg
[2023-05-01] MEDS ORDERED: AMAN100 PO (19:25)
[2023-05-01] MEDS ORDERED: CARBLEV25 (19:25)
[2023-05-01] MEDS ORDERED: ENTRESTO 24 MG1 EACH (19:26)
[2023-05-01] MEDS ORDERED: FURO40 PO (19:26)
[2023-05-01] MEDS ORDERED: DOXA4 (19:26)
[2023-05-01] MEDS ORDERED: DIGOX125 MC1 PO (19:26)
[2023-05-01] MEDS ORDERED: NOVOLOG100 UNIT/3 (19:27)
[2023-05-01] MEDS ORDERED: METF500 PO (19:27)
[2023-05-01] MEDS ORDERED: JARDIANCE10 MG (19:27)
[2023-05-01] MEDS ORDERED: METO50 (19:27)
[2023-05-01] MEDS ORDERED: PRAM.125 PO (19:28)
[2023-05-01] MEDS ORDERED: PRAV20 PO (19:28)
[2023-05-01] MEDS ORDERED: POTCHL20ER PO (19:28)
[2023-05-01 19:39] LABS: BASOPHILS ABSOLUTE AUTO 0.02 K/mm3 (0.00-0.23); BASOPHILS PERCENT AUTO 0 % (0-2); EOSINOPHILS ABSOLUTE AUTO 0.01 K/mm3 (0.00-0.68); EOSINOPHILS PERCENT AUTO 0 % (0-6); Hematocrit 45.6 % (37.0-53.0); Hemoglobin 15.4 g/dL (13.5-17.5); IMMATURE GRAN ABSOLUTE AUTO 0.06 K/mm3 (0.00-0.10); IMMATURE GRAN PERCENT AUTO 0 % (0-1); LYMPHOCYTES ABSOLUTE AUTO 0.98 K/mm3 (0.84-5.20); LYMPHOCYTES PERCENT AUTO 6 % (21-46); MONOCYTES ABSOLUTE AUTO 0.85 K/mm3 (0.16-1.47); MONOCYTES PERCENT AUTO 5 % (4-13); Mean Corpuscular HGB 32.2 pg (26.0-34.0); Mean Corpuscular HGB Conc 33.8 g/dL (31.5-36.5); Mean Corpuscular Volume 95 fL (80-100); Mean Platelet Volume 11.7 fL (9.1-12.4); NEUTROPHILS ABSOLUTE AUTO 14.15 K/mm3 (1.96-9.15); NEUTROPHILS PERCENT AUTO 88 % (41-73); Platelet Count 127 K/mm3 (150-400); RDW Coefficient Variation 14.2 % (11.7-14.2); RDW Standard Deviation 49.4 fL (35.1-46.3); Red Blood Cell Count 4.79 M/mm3 (4.30-5.90); White Blood Cell Count 16.07 K/mm3 (4.00-11.30)
[2023-05-01 20:06] LABS: Bilirubin, Total 1.1 mg/dL (0.1-1.0); Bun/Creatinine Ratio 30.8 (12.0-20.0); Calcium, Blood 9.6 mg/dL (8.5-10.1); Creatinine, Blood 2.53 mg/dL (0.60-1.20); Potassium, Blood 5.2 mmol/L (3.5-5.5)
[2023-05-01 20:38] LABS: International Normalized Ratio 1.14; Prothrombin Time Results 11.9 Sec (9.7-11.5)
[2023-05-01 20:59] LABS: Base Excess Venous -2.6 mmol/L; PCO2 Venous 41.3 mmHg (38-42); pH Blood Venous 7.35 (7.34-7.37)
[2023-05-01 21:05] LABS: Source, Urine Voided
[2023-05-01 21:08] LABS: Bilirubin, Urine Neg (Neg); Blood, Urine 5+ (Neg); Color, Urine Yellow (P-Yellow); Glucose Qualitative, Urine 4+ (Neg); Ketones, Urine Neg (Neg); Leukocyte Esterase, Urine Neg (Neg); Nitrite, Urine Neg (Neg); Protein, Urine 2+ (Neg); Urobilinogen, Urine NORM (Normal)
[2023-05-01 21:14] LABS: Appearance, Urine Hazy (Clear)
[2023-05-01 21:15] LABS: Amorphous Mod (0-Heavy); Bacteria Mod /hpf; Mucus Light (0-Heavy); Red Blood Cells, Urine 0-2 /hpf (0-2); Squamous Epithelial Cells Rare /hpf (Few); Transitional Epithelial Cells Rare /hpf (0-Rare); White Blood Cells, Urine 0-2 /hpf (0-5)
[2023-05-02] VITALS (7 sets, daily range): BP systolic 94–144; BP diastolic 56–107
--- NOTE | 2023-05-02 | NUR ---
ARRIVAL TO PCU8 PT ARRIVED TO U8 AT APPROXIMATELY 2330. PT SLID OVER FROM ER [facility] TO HOSPITAL BED BY 4 CLNINCAL STAFF MEMBERS. PT A&Ox4, CALLS AND COMMUNICATES NEEDS APPROPRIATELY. PT IS SOFT SPOKEN, SLOW TO RESPOND, AND HAS TROUBLE FORMING LONG SENTENCES. PT WITH MILD R FACIAL DROOP, NO R POST TRONIC MACHINE OPERATOR STRENGTH, AND NOT ABLE TO MOVE R LEG. PT ALSO DENIES ABILITY TO FEEL SENSATION OF R SIDE. TOWARDS END OF ASSESSMENT PT WAS SLIGHTLY MOVING R LEG BUT STATED THAT HE WAS UNAWARE THAT LEG WAS MOVING. BP STABLE, AFIB w/ BBB, 80's, DENIES CP/PRESSURE. SpO2> 92% RA, DENIES SOB. BLADDER SCAN DONE UPON ARRIVAL SHOWING >999mLs, PHYSICIAN NOTIFIED, INSTRUCTIONS TO KEEP ARNETT CATHETER IN PLACE RATHER THAN JUST DOING STRAIGHT CATH. ORIENTED PT TO CALL LIGHT/UNIT. BED IN LOWEST POSITION, CALL LIGHT IN REACH.
[2023-05-02 00:38] LABS: BASOPHILS ABSOLUTE AUTO 0.01 K/mm3 (0.00-0.23); BASOPHILS PERCENT AUTO 0 % (0-2); EOSINOPHILS ABSOLUTE AUTO 0.02 K/mm3 (0.00-0.68); EOSINOPHILS PERCENT AUTO 0 % (0-6); Hematocrit 42.3 % (37.0-53.0); Hemoglobin 14.4 g/dL (13.5-17.5); IMMATURE GRAN ABSOLUTE AUTO 0.05 K/mm3 (0.00-0.10); IMMATURE GRAN PERCENT AUTO 0 % (0-1); LYMPHOCYTES PERCENT AUTO 8 % (21-46); MONOCYTES ABSOLUTE AUTO 0.82 K/mm3 (0.16-1.47); MONOCYTES PERCENT AUTO 6 % (4-13); Mean Corpuscular Volume 94 fL (80-100); Mean Platelet Volume 11.6 fL (9.1-12.4); NEUTROPHILS ABSOLUTE AUTO 10.99 K/mm3 (1.96-9.15); NEUTROPHILS PERCENT AUTO 85 % (41-73); Platelet Count 117 K/mm3 (150-400); RDW Coefficient Variation 14.1 % (11.7-14.2); RDW Standard Deviation 48.4 fL (35.1-46.3); White Blood Cell Count 12.89 K/mm3 (4.00-11.30)
[2023-05-02 00:45] LABS: Source, Urine Foley catheter
[2023-05-02 00:49] LABS: Bilirubin, Urine Neg (Neg); Blood, Urine 5+ (Neg); Glucose Qualitative, Urine 4+ (Neg); Ketones, Urine 1+ (Neg); Leukocyte Esterase, Urine Neg (Neg); Nitrite, Urine Neg (Neg); Protein, Urine 2+ (Neg); Specific Gravity, Urine 1.015 (1.003-1.022); Urobilinogen, Urine NORM (Normal)
[2023-05-02 00:53] LABS: Appearance, Urine Clear (Clear); Color, Urine Yellow (P-Yellow)
[2023-05-02 00:57] LABS: Albumin, Blood 3.6 g/dL (3.4-5.0); Albumin/Globulin Ratio 1.1 (0.8-1.8); Bun/Creatinine Ratio 32.3 (12.0-20.0); Calcium, Blood 9.1 mg/dL (8.5-10.1); Creatinine, Blood 2.26 mg/dL (0.60-1.20); Globulin, Blood 3.4 g/dL (2.2-4.0); Potassium, Blood 4.3 mmol/L (3.5-5.5)
[2023-05-02 00:57] LABS: Amorphous Light (0-Heavy); Bacteria Not Seen /hpf; Red Blood Cells, Urine 0-2 /hpf (0-2); Squamous Epithelial Cells Rare /hpf (Few); Transitional Epithelial Cells Few /hpf (0-Rare); White Blood Cells, Urine Not Seen /hpf (0-5)
--- NOTE | 2023-05-02 04:53 | NUR ---
SHIFT SUMMARY SEE PREVIOUS NOTE. NO ACUTE CHANGES. VSS, DENIES CP/PRESSURE/SOB. ARNETT CATH REMAINS PATENT DRAINING YELLLOW URINE TO GRAVITY. NO OTHER EVENTS, WILL REPORT TO ONCOMING RN.
--- NOTE | 2023-05-02 08:39 | NUR ---
AM NOTE PT ALERT TO SELF AND PLACE BUT APPEARS TO HAVE EXPRESSIVE APHASIA. PT REPOSITIONED FOR ECHO ULTRASOUND, 1/2 NS INFUSING PER EMAR ORDERS. PT COMPLAINS OF R SIDED ARM PAIN, R SIDE APPEARS FLACCID. THIS NURSE SPOKE W/ PT SON CHENTE W/ PT'S CONSENT TO PROVIDE UPDATE. SPEECH THERAPY EVAL PLACED PER DR. BEAVER 'S ORDERS, THIS RN SPOKE W/ ROXANNE JOHNSTON THERAPIST AND PT WILL BE EVALUATED AFTER ECHO COMPLETE.
[2023-05-02 09:52] LABS: Albumin, Blood 3.5 g/dL (3.4-5.0); Anion Gap 11 mmol/L (6-16); Blood Urea Nitrogen 74 mg/dL (8-24); CO2, Blood 20 mmol/L (21-32); Chloride, Blood 118 mmol/L (98-108); Creatinine, Blood 2.24 mg/dL (0.60-1.20); Glomerular Filtration Rate 29 (60-); Glucose, Blood 198 mg/dL (70-99); Phosphorus, Blood 3.2 mg/dL (2.5-4.9); Potassium, Blood 4.4 mmol/L (3.5-5.5); Sodium, Blood 149 mmol/L (136-145)
--- NOTE | 2023-05-02 14:59 | NUR ---
Pt's friend Dunia stopped in, brought another family friend, a PA. Pt's son requests Dr. Delgado call [facility] Beck to give an update. Both Dunia and Ebony are working with pt's son to get an accurate picture of pt's condition. They state at this time the hope is to see if pt improves enough to participate in rehabilitation. If pt's overall condition does not improve, the pt's son Jeremiah is open to hospice. Both troponin and CK are still elevated. Pt appears to have expressive aphasia. Was cleared for thin liquids by PT, and does not appear to be in pain at this time.
--- NOTE | 2023-05-02 18:51 | NUR ---
SHIFT SUMMARY PT IS ALERT AND ORIENTED TO SELF ONLY, HE HAS EXPRESSIVE APHASIA AND HAS APPEARED TO GET FRUSTRATED W/ COMMUNICATION. VSS. HE HAS DENIED FEELINGS OF CHEST PAIN/PRESSURE WELL FEELINGS OF SOB. PAIN REPORTED ON R SIDE. R EXTREMETY NOTED TO BE SWOLLEN IN AM W/ INCREASED SWELLING AND ECHOMYOTIC DISCOLORATION IN LAST TWO DIGITS. R EXTREMETY CT COMPLETE. R SIDE IS COMPLETELY FLACCID BUT PT REPORTS SENSATION IN EXTREMETIES ON R SIDE. BP STABLE, HR NOTED TO REACH AFIB 40, DR. BEAVER MADE AWARE. ARNETT CATHETER IN PLACE AND DRAINING TO GRAVITY. IV INFUSING PER EMAR ORDERS 1/2 NS. HE HAS DENIED NAUSEA/VOMITTING. BED ALARM ON. CALL LIGHT IN REACH OF L HAND.
[2023-05-03 04:01] VITALS: BP 117/63
--- NOTE | 2023-05-03 04:49 | NUR ---
SHIFT SUMMARY PT A&O TO SELF AND IS LETHARGIC. PT WITH EXPRESSIVE APHASIA. R FACIAL DROOP PRESENT, R EXTREMITIES REMAIN FLACCID; PT MOANS AND SHOWS SIGNS OF DISCOMFORT WHEN STAFF MOVED R EXTREMITIES. R HAND SWOLLEN, RED, AND BLISTERED WITH DARKENED 4th AND 5th DIGITS. RUE ELEVATED THROUGHOUT NIGHT. STRONG PULSES IN ALL EXTREMITIES. BP STABLE, AFIB w/ BBB 80's, DENIES CP/PRESSURE. SpO2> 92% RA, DENIES SOB. ARNETT CATH PATENT, DRIANING TO GRAVITY. PT UNABLE TO STAY AWAKE AND FOLLOW COMMANDS DURING 2100 MEDICATION ADMINISTRATION RESULTING IN PT NOT BEING ABLE TO TAKE MEDICATION. NO OTHER EVENTS, WILL REPORT TO ONCOMING RN.
[2023-05-03 06:55] LABS: BASOPHILS ABSOLUTE AUTO 0.04 K/mm3 (0.00-0.23); BASOPHILS PERCENT AUTO 0 % (0-2); Hematocrit 40.8 % (37.0-53.0); Hemoglobin 13.8 g/dL (13.5-17.5); LYMPHOCYTES ABSOLUTE AUTO 1.13 K/mm3 (0.84-5.20); LYMPHOCYTES PERCENT AUTO 5 % (21-46); MONOCYTES ABSOLUTE AUTO 1.24 K/mm3 (0.16-1.47); MONOCYTES PERCENT AUTO 5 % (4-13); Mean Corpuscular HGB 32.5 pg (26.0-34.0); Mean Corpuscular HGB Conc 33.8 g/dL (31.5-36.5); Mean Corpuscular Volume 96 fL (80-100); Mean Platelet Volume 12.4 fL (9.1-12.4); Platelet Count 104 K/mm3 (150-400); RDW Coefficient Variation 14.2 % (11.7-14.2); RDW Standard Deviation 50.2 fL (35.1-46.3); Red Blood Cell Count 4.24 M/mm3 (4.30-5.90); White Blood Cell Count 25.03 K/mm3 (4.00-11.30)
[2023-05-03 06:56] LABS: EOSINOPHILS PERCENT AUTO 0 % (0-6); IMMATURE GRAN ABSOLUTE AUTO 0.14 K/mm3 (0.00-0.10); IMMATURE GRAN PERCENT AUTO 1 % (0-1); NEUTROPHILS ABSOLUTE AUTO 22.48 K/mm3 (1.96-9.15); NEUTROPHILS PERCENT AUTO 90 % (41-73)
[2023-05-03 07:14] LABS: BAND PERCENT MAN 3 % (0-8); BASOPHILS PERCENT MAN 0 % (0-2); EOSINOPHILS PERCENT MAN 0 % (0-6); LYMPHOCYTES ABSOLUTE MAN 0.75 K/mm3 (0.84-5.20); LYMPHOCYTES PERCENT MAN 3 % (21-46); METAMYELOCYTE ABSOLUTE MAN 0.25 K/mm3 (0.00-0.00); METAMYELOCYTE PERCENT MAN 1 % (0-0); MONOCYTES PERCENT MAN 2 % (4-13); NEUTROPHILS ABSOLUTE MAN 23.52 K/mm3 (1.96-9.15); SEG NEUTROPHILS PERCENT MAN 91 % (41-73); TOTAL CELLS COUNTED 100
[2023-05-03 07:24] LABS: Magnesium, Blood 2.6 mg/dL (1.6-2.4)
[2023-05-03 07:29] LABS: Phosphorus, Blood 3.3 mg/dL (2.5-4.9)
[2023-05-03 08:04] VITALS: BP 143/128
--- NOTE | 2023-05-03 12:18 | NUR ---
CBG [address] BEAVER, HE STATED TO GIVEN THE ORDERED 5UNITS OF INSULIN AND MONITOR.
[2023-05-03 12:22] VITALS: BP 116/49
--- NOTE | 2023-05-03 15:31 | NUR ---
PT'S FAMILY FRIENDS HAVE BEEN AT BEDSIDE THIS MORNING AND DR. BEAVER HAS BEEN IN CONCACT WITH THE PT'S SON. THE SON HAS OPPTED TO MAKE THE PT COMFORT CARE DUE TO QUALITY OF LIFE VERSUS QUANTITY OF LIFE. THE PT HAS BEEN REGRESSING SINCE ADMISSION. DR. BEAVER HAS BEEN IN CONTACT WITH THE PT'S SON DURING THIS PROCESS.
--- NOTE | 2023-05-03 17:47 | NUR ---
TRANSFERED TO MEDICAL FLOOR, ARRIVED AT 1735HRS. STAYED ON SAME BED. MR CARTER OPENS HIS EYES TO VERBAL STIMULI. REPOSITIONED AND SUPPORTED BY PILLOWS. HE DOES NOT LOOK UNCOMFORTABLE AT THIS TIME AND DOES NOT MAKE ANY POSITIVE INDICATION WHEN ASKED IF HE HAS ANY PAIN OR WOULD LIKE ANY PAIN MEDICATIONS. ARNETT TO BEDSIDE DRAINAGE BAG. NO RESP DISTRESS OR SECRETIONS NOTED. BED LOW, CALL LIGHT IN REACH.
--- NOTE | 2023-05-04 03:52 | NUR ---
SHIFT SUMMARY NOC COMFORT CARE PT WHO HAS BEEN UNRESPONSIVE MAJORITY OF SHIFT WITH ONE EPISODE OF EXHIBITING PAIN BODY LANGUAGE AND WAS MEDICATED PER EMAR. PT BREATHING PATTERN STILL TACHYPNEA AND SHALLOW. ARNETT IN PLACE. PT HAS NO DOCUMENTATION OF COVID-19 INFECTION AND IS STILL IN ENHANCED ISOLATION WITH NO ORDER. WILL ATTEMPT TO SPEAK WITH PT PROVIDER DR BEAVER IF HE IS AVAILABLE BEFORE DAY SHIFT ARRIVES TO GET CORRECT INFORMATION. PT IS CURRENTLY RESTING, UNRESPONSIVE WITH BED IN LOWEST POSITION, AND CALL LIGHT WITHIN REACH.
--- NOTE | 2023-05-04 13:49 | NUR ---
Patient found to be without pulse, respirations, 2nd RN to verify. Called MD and notified MD that patient passed at 1340.
--- NOTE | 2023-05-04 16:15 | NUR ---
COMFORT CARE SHIFT NOTE PATIENT WAS CHECKED BEFORE THIS RN WENT TO LUNCH AND FOUND TO HAVE SHALLOW BREATHING. PATIENT WAS FOUND TO PASSED DURING THIS RN LUNCH. PATIENTS FAMILY NOTIFIED. NOTIFIED. DONOR LINE NOTIFIED. HOME IS NOTIFIED.
== END 2023-05-04 13:40 | DRG 65 ==
LOC: ER 18:48 → PCU 22:23 → MEDS 05-03 17:22
PROVIDERS: Emergency Medicine; Family Medicine; ADMIT Internal Medicine
PROC: 0T9B70Z Drainage of Bladder with Drainage Device, Via Natural or Artificial Opening (ICD-10-PCS; principal; 2023-05-02)
DX: I63.9 Cerebral infarction, unspecified (principal); G81.91 Hemiplegia, unspecified affecting right dominant side; I13.0 Hypertensive heart and chronic kidney disease with heart failure and stage 1 through stage 4 chronic kidney disease, or unspecified chronic kidney disease; I50.22 Chronic systolic (congestive) heart failure; N17.9 Acute kidney failure, unspecified; M62.82 Rhabdomyolysis; Z66 Do not resuscitate; Z51.5 Encounter for palliative care; R77.8 Other specified abnormalities of plasma proteins; I25.5 Ischemic cardiomyopathy; R29.810 Facial weakness; E11.22 Type 2 diabetes mellitus with diabetic chronic kidney disease; G20 Parkinson's disease; I48.0 Paroxysmal atrial fibrillation; I25.10 Atherosclerotic heart disease of native coronary artery without angina pectoris; I27.20 Pulmonary hypertension, unspecified; E78.5 Hyperlipidemia, unspecified; Z90.89 Acquired absence of other organs; Z79.01 Long term (current) use of anticoagulants; Z79.4 Long term (current) use of insulin; Z79.899 Other long term (current) drug therapy; Z85.51 Personal history of malignant neoplasm of bladder; Z85.72 Personal history of non-Hodgkin lymphomas; Z79.84 Long term (current) use of oral hypoglycemic drugs; Z95.1 Presence of aortocoronary bypass graft
CPT/HCPCS: 36415; 70450; 71045; 72125; 72170; 73060; 73090; 73200; 80053; 80069; 81001; 82140; 82550; 82803; 82947; 83605; 83735; 83880; 84100; 84484; 85025; 85610; 87040; 87086; 92526; 92610; 93005; 93010; 96360; 99285-25; A9270; C8929; J0692; J3370; J7030; J7050; Q9957